=== PATIENT | male | born 1955 | race Caucasian/White ===

== ENCOUNTER 2019-10-13 22:51 | Outpatient (REF) | payer BC, SELFPAY ==
[2019-10-13 19:21] LABS: Anion Gap 11.9 mmol/L (3-11); BUN 17 mg/dL (7-18); CO2 25.1 mmol/L (21.0-32.0); CREATININE 0.89 mg/dL (0.70-1.30); Calcium 9.2 mg/dL (8.5-10.1); Calculated LDL 119 mg/dL (<100); Chloride 101 mmol/L (98-107); Cholesterol 189 mg/dL (<200); Glucose 88 mg/dL (74-106); HDL Cholesterol 48 mg/dL (40-60); Hemoglobin A1C 5.3 % (3.8-5.6); Potassium 4.4 mmol/L (3.5-5.1); Sodium 138 mmol/L (136-145); Triglyceride 113 mg/dL (<150)
== END 2019-10-13 23:11 ==
LOC: NCHCN 22:51
PROVIDERS: PCP Internal Medicine; Visit Provider Nurse Practitioner Family
DX: I10 Essential (primary) hypertension (principal); M25.552 Pain in left hip; Z00.00 Encounter for general adult medical examination without abnormal findings
CPT/HCPCS: 80048; 80061; 83036

== ENCOUNTER 2019-10-19 01:57 | Outpatient (CLI) | payer BC, SELFPAY ==
--- NOTE | 2019-10-19 | DI.RAD_ITS ---
EXAM: XR HIP RT AP LAT ONLY CLINICAL HISTORY: HIP JOINT PAIN LT, M25.552 TECHNIQUE: 2D digital imaging was performed. COMPARISON: CR RIGHT ANKLE COMPLETE from 03/25/2015 FINDINGS: There is obliteration of the hip joint space. There is prominent acetabular spurring and spurring at the margin of the femoral head. There are subchondral cysts on both sides of the joint. There is m ild flattening of the femoral head. IMPRESSION: Severe degenerative changes of the right hip.
== END 2019-10-19 02:17 ==
PROVIDERS: PCP Nurse Practitioner Family; Visit Provider Nurse Practitioner Family
DX: M25.551 Pain in right hip (principal); M16.11 Unilateral primary osteoarthritis, right hip
CPT/HCPCS: 73502

== ENCOUNTER 2019-11-08 12:07 | Outpatient (REF) | payer BC, SELFPAY ==
[2019-11-08 20:03] LABS: Anion Gap 11.6 mmol/L (3-11); BUN 20 mg/dL (7-18); CO2 24.4 mmol/L (21.0-32.0); CREATININE 0.97 mg/dL (0.70-1.30); Calcium 8.8 mg/dL (8.5-10.1); Chloride 101 mmol/L (98-107); Glucose 94 mg/dL (74-106); Potassium 4.3 mmol/L (3.5-5.1); Sodium 137 mmol/L (136-145); TSH (W/Ref FT4) 6.29 uIU/mL (0.36-3.74)
== END 2019-11-08 12:27 ==
LOC: NCHCN 12:07
PROVIDERS: PCP Nurse Practitioner Family; Visit Provider Physician Assistant Medical
DX: R07.89 Other chest pain (principal); I10 Essential (primary) hypertension; R00.1 Bradycardia, unspecified
CPT/HCPCS: 80048; 83735; 84439; 84443

== ENCOUNTER 2019-11-09 08:47 | Outpatient (CLI) | payer BC, SELFPAY | END 2019-11-09 09:07 | PROVIDERS: PCP Nurse Practitioner Family; Visit Provider Physician Assistant Medical | DX: R07.89 Other chest pain (principal); R00.1 Bradycardia, unspecified | CPT/HCPCS: 93225 ==

== ENCOUNTER 2019-11-10 12:14 | Outpatient (CLI) | payer BC, SELFPAY ==
--- NOTE | 2019-11-10 15:14 | W.HOLTRPT ---
Date of service: 11/10/19 Time of Service: 15:14 Holter Monitor Report Referring Provider:: Liane Jasmine Indications:: Chest pressure, bradycardia Holter Monitor Note: This is a 24-hour Holter monitor Rhythm throughout was sinus with an average heart rate of 64 bpm. Minimum heart rate was 45 and maximum 108 There were very rare atrial and ventricular ectopic beats There was no ventricular tachycardia or atrial fibrillation There were no pauses or AV block No patient symptoms were reported
== END 2019-11-10 12:34 ==
PROVIDERS: PCP Nurse Practitioner Family; Visit Provider Nurse Practitioner Family
DX: R07.89 Other chest pain (principal); R00.1 Bradycardia, unspecified
CPT/HCPCS: 93226

== ENCOUNTER 2019-11-15 07:29 | Outpatient (CLI) | payer BC, SELFPAY ==
--- NOTE | 2019-11-15 08:00 | ETT_ITS ---
APPROVED REPORT Exam: Exercise Treadmill Patient Location: Out-Patient Room/Bed: Stress Nurse: Alyssa Mendez RN BMI: 27.31 Baseline Rhythm: Sinus Bradycardia Indications: Chest pressure. Medical History Medical History: HTN, Hyperlipidemia Cardiac Medications: Lisinopril Allergies: No known drug allergies Cardiac Risk Factors: HTN, Hyperlipidemia Pretest Chest Pain Characteristics: No chest pain Exercise History: Physically active Physical Disabilities: Legs Lung Sounds: Clear to auscultation Heart Sounds: Regular Stress Test Details Rest Stress HR Resting HR Supine: 49 bpm Resting HR Standin bpm Max HR Achieved: 132 bpm Recovery HR: 69 bpm HR response to stress: Normal HR response to stress BP Resting BP Supine: 182/98 mmHg Resting BP Standin/92 mmHg Max BP: 206/88 mmHg Recovery BP: 180/90 mmHg BP response to stress: Normal blood pressure response to stress. Comment: Hypertensive at baseline, pre-exercise. ECG Resting ECG: Sinus Bradycardia Stress ECG: Sinus Tachycardia ST Change: Horizontal ST depression Lead(s): lateral leads Stage: [address] Deviation: 1.5 mm Arrhythmia: VPC's Recovery ECG: Sinus Rhythm Recovery ST Change: No significant ST segment changes Recovery Arrhythmia: None Clinical Reason for Termination: Fatigue Stress Symptoms: Leg Fatigue Exercise duration: 9 min01 sec Highest Stage Reached: Stage 3: 3.4 mph at 14% grade. Exercise capacity: 10.16 METs Functional Capacity: Above average capacity Stress ECG Conclusion 1. Patient exercised for 9 minutes (10 METS). Patient had no symptoms suggestive of ischemia. 2. There were 1.[address] depressions in the lateral leads. These resolved 1 minute into re covery 3. The Sherman Score ( 0) estimates an annual cardiovascular mortality of 1% and a five year survival of 92%. Using the Sherman Score there is an intermediate probability of angiographic coronary disease. Stress Test Summary STAGE Time (mins) Speed (mph) Grade (%) HR BP SYMPTOMS METS Supine 49 182/98 Standing 55 178/92 1 3 1.7 10 91 190/90 4.6 2 6 2.5 12 111 7 3 9 3.4 14 132 10.2 1 min recovery 98 206/88 3 min recovery 76 194/88 6 min recovery 69 180/90
== END 2019-11-15 07:49 ==
PROVIDERS: PCP Nurse Practitioner Family; Visit Provider Physician Assistant Medical
DX: R07.89 Other chest pain (principal); I10 Essential (primary) hypertension; E78.5 Hyperlipidemia, unspecified
CPT/HCPCS: 93017

== ENCOUNTER 2019-11-18 11:35 | Outpatient (CLI) | payer BC, SELFPAY ==
--- NOTE | 2019-11-18 10:30 | DI.RAD_ITS ---
EXAM: XR PELVIS AP CLINICAL HISTORY: R hip pain TECHNIQUE: COMPARISON: No exams were available for comparison FINDINGS: Single AP view of pelvis was obtained. There is complete loss of the cartilaginous joint space of th e right hip superiorly. Right femoral head appears mildly laterally subluxed. There are very promin ent hypertrophic degenerative marginal osteophytes of the acetabulum and femoral head. There is subc hondral cyst formation and sclerosis of the acetabulum and femoral head. IMPRESSION: Severe DJD right hip, mild degenerative changes of left hip are noted as well.
== END 2019-11-18 11:55 ==
PROVIDERS: PCP Nurse Practitioner Family; Referring Provider Nurse Practitioner Family; Visit Provider Physician Assistant
DX: M16.0 Bilateral primary osteoarthritis of hip (principal)
CPT/HCPCS: 72170

== ENCOUNTER 2019-12-16 01:42 | Outpatient (CLI) | payer BC, SELFPAY ==
[2019-12-18 17:42] LABS: COVID-19 RT-PCR Result NEGATIVE (Negative)
== END 2019-12-16 02:02 ==
PROVIDERS: PCP Nurse Practitioner Family; Visit Provider Student in an Organized Health Care Education/Training Program
DX: M16.11 Unilateral primary osteoarthritis, right hip (principal)
CPT/HCPCS: U0003

== ENCOUNTER 2019-12-16 03:04 | Outpatient (CLI) | payer BC, SELFPAY ==
[2019-12-16 11:00] LABS: HCT 41.8 % (40.0-50.0); HGB 14.4 g/dL (13.5-17.5); MCH 32.6 pg (27.0-33.0); MCHC 34.4 % (32.0-36.0); MCV 94.6 fL (80-95); Platelet Count 241 10^3/uL (130-400); RBC 4.42 10^6/uL (4.36-5.78); RDW 11.4 % (11.8-14.1); RDW-SD 39.2 fL; WBC 6.53 10^3/uL (4.4-10.8)
[2019-12-16 11:41] LABS: Anion Gap 7.5 mmol/L (3-11); BUN 21 mg/dL (7-18); CO2 26.5 mmol/L (21.0-32.0); Calcium 8.7 mg/dL (8.5-10.1); Chloride 104 mmol/L (98-107); Glucose 96 mg/dL (74-106); Potassium 4.3 mmol/L (3.5-5.1); Sodium 138 mmol/L (136-145)
== END 2019-12-16 03:24 ==
PROVIDERS: PCP Nurse Practitioner Family; Visit Provider Student in an Organized Health Care Education/Training Program
DX: M16.11 Unilateral primary osteoarthritis, right hip (principal)
CPT/HCPCS: 36415; 80048; 85027; 86850; 86900; 86901

== ENCOUNTER 2019-12-20 07:51 | Observation (INO) | payer BC, SELFPAY ==
[2019-12-20] VITALS (7 sets, daily range): BP systolic 99–157; BP diastolic 55–84; PULSE 46–57; RESP 14–19; TEMP 35.8–36.9; O2SAT 96–100
[2019-12-20] MEDS: Celecoxib 200 MG CAP 400 MG PO (08:07)
[2019-12-20] MEDS: Acetaminophen 500 MG TAB 1000 MG PO (08:07)
[2019-12-20] MEDS: Lactated Ringers 1,000 ML 80 ML IV (08:35)
--- NOTE | 2019-12-20 12:00 | DI.RAD_ITS ---
EXAM: XR HIP RT IN OR CLINICAL HISTORY: TOTAL RIGHT HIP REPLACEMENT. TECHNIQUE: Fluoroscopy was provided for the referring physician for guidance with performing injecti on procedure. COMPARISON: No exams were available for comparison FINDINGS: Please see procedure note for details. FLUORO TIME: 4.31 seconds RADIATION DOSE DELIVERED:
[2019-12-20] MEDS: ceFAZolin 2 GM/50 ML BAG IVPB (13:44)
[2019-12-20] MEDS: Bupivacaine 0.25% Pres-Free 30 ML VIAL (14:14)
[2019-12-20] MEDS: Ketorolac 30 MG/ML VIAL (14:16)
--- NOTE | 2019-12-20 16:21 | IN_ITS ---
Date of service: 12/20/19 PT Notes Visit Reasons: R HIP TOTAL Physical Therapy Inpatient Initial Evaluation Date: 12/20/2019 Referring Doctor: Palomo Wan MD PT Orders: PT CONSULT: S/P Ortho surgery Precautions: Fall. Standard. WBAT on R LE. Patient Profile/Admitting Diagnosis: Steffanie is a 64-year-old male with primary unilateral osteoarthritis of R hip status post R total hip arthroplasty. PMHX: Medical History (Updated 11/28/19 @ 13:43 by Hamilton Ware MD) HTN (hypertension) (Chronic) Social History/Home Situation: Lives with in a private home with three steps leading onto a landing and has another step onto the entrance door. Equipment Owned/DME: FWW, SPC Subjective: Steffanie reports that his foot has a magnet trying to move it to the side early in ambulation. The stiffness and heaviness disappeared by the time he got done with ambulation and stair activity. Denies dizziness, chest pain, and headache throughout. Objective: General Observation: Mepilex Ag over surgical incision, IV in the L UE. Mental Status: Alert and oriented x 4 Pain: 0/10 ROM: Right Upper Extremity: Shoulder Flexion WFL. Shoulder abduction WFL. Elbow flexion WFL. Wrist flexion WFL. Opening and closing of hand WFL. Left Upper Extremity: Shoulder Flexion WFL. Shoulder abduction WFL. Elbow flexion WFL. Wrist flexion WFL. Opening and closing of hand WFL. Right Lower Extremity: Hip flexion WFL. Hip abduction WFL. Knee flexion WFL. Ankle dorsiflexion WFL. Ankle plantarflexion WFL. Left Lower Extremity: Hip flexion WFL. Hip abduction WFL. Knee flexion WFL. Ankle dorsiflexion WFL. Ankle plantarflexion WFL. Strength: Right Upper Extremity: Shoulder flexors 5/5. Shoulder abductors 5/5. Elbow flexors 5/5. Elbow extensors 5/5. Clinical Pharmacy Coordinator strong. Left Upper Extremity: Shoulder flexors 5/5. Shoulder abductors 5/5. Elbow flexors 5/5. Elbow extensors 5/5. Clinical Pharmacy Coordinator strong. Right Lower Extremity: Hip flexors 4/5. Hip abductors 4/5. Knee flexors 5/5. Knee extensors 4/5. Ankle dorsiflexors 5/5. Ankle plantarflexors 5/5. Left Lower Extremity:Hip flexors 5/5. Hip abductors 5/5. Knee flexors 5/5. Knee extensors 5/5. Ankle dorsiflexors 5/5. Ankle plantarflexors 5/5. Sensation: Intact as to pain and pressure on bilateral lower extremities. Bed Mobility/Transfers: Supine to sit SBA Sit to supine SBA Sit to stand SBA Stand to sit SBA Bed to chair SBA Gait: 150 feet x 2 with FWW with SBA with step-to gait pattern. Tolerated up and down six 4-inch steps and four 6-inch steps while holding onto a rail with one hand and using a SPC with the other with step-to pattern with SBA. No pain complaint. No SOB. THERA EX: Tolerated standing level exercises consisting of bilateral heel raises x 10, marching in place x 10, and partial knee bends x 10 with good response. Balance: Static Sitting: Normal Dynamic Sitting: Normal Static Standing: Fair Dynamic Standing: Fair Special Tests: Mobility Limitations Standardized Measure [facility] 6 clicks Basic Mobility Inpatient Short Form: Raw Score: 23 CMS Score: 11% deficit Informed Consent/Education: Patient instructed in purpose of PT consult and plan of care. Assessment: Steffanie demonstrates functional mobility decline requiring the need for a front-wheeled walker, unsteadiness of gait, difficulty with walking without an AD, and increased risk for falls. Steffanie is a 64-year-old male with primary unilateral osteoarthritis of R hip status post R total hip arthroplasty. Patient presents with clinical signs and symptoms consistent with current/admitting diagnoses that have resulted to mobility limitations, gait instability, generalized weakness, and impairment of motor control as demonstrated by the following impairment level findings: 1. Decreased strength to R hip major muscle groups 2. Impaired sitting/standing balance 3. Impaired activity tolerance Impairments are contributing to the following functional limitations: 1. Dependent bed mobility skills 2. Increased dependence with transfers 3. Inability to safely ambulate without assistive device and physical assistance 4. Increase completion time for mobility ADL performance 5. Increased fall risk 6. Inability to negotiate steps alone safely Patient is assessed as a 70588 moderate complexity based on the following: History: 64-year-old male with impairment level findings, functional limitations, and past medical history as indicated above Examination: Demonstrable impairment in strength, balance, and mobility level with underlying impairments and functional limitations as documented above Presentation:Evolving Decision Makin complexity Goals: N/A. PT evaluation only. Plan of Care/Treatment Plan: N/A. PT evaluation only. DISCHARGE RECOMMENDATIONS: Home when medically cleared by orthopedic surgeon. OP PT to facilitate return to independent level. TREATMENT CODE/TIME: 98848 x 25 minutes, 15932 x 27 minutes beginning at 16:21 PM. Thank you for the opportunity to participate in the care of this patient. Guillermina Woodward PT, DPT, CLT [facility] [place], [place]
--- NOTE | 2019-12-20 17:36 | DSE_ITS ---
Date of service: 12/20/19 Time of Service: 17:36 DS: Diagnosis Discharge Diagnosis (1) Primary osteoarthritis of right hip: Status: Acute Discharge Plan Disposition Patient Disposition: HOME Condition: Good Discharge Details Reason For Visit: R HIP TOTAL Admit Date/Time: 12/20/19 07:51 Admit Provider: Palomo Wan Attending Provider: Palomo Wan Primary Care Provider: Nidia Capone Hospital Course Hospital Course: Patient was admitted to the medical/surgical floor following the procedure. The surgery was tolerated well without any notable medical, surgical, or anesthetic complications. Mobilization began postoperatively. He was voiding spontaneously. Vitals were stable. Physical therapy worked with the patient and was cleared for discharge home. No acute medical issues. Pain was controlled on oral regimen. Home Meds and New Rx's Prescriptions: New aspirin 81 mg tablet,delayed release (DR/EC) 81 mg PO BID Qty: 60 RF: 0 pantoprazole [Protonix] 40 mg tablet,delayed release (DR/EC) 40 mg PO DAILY Qty: 30 RF: 0 ibuprofen 600 mg tablet 600 mg PO TID Qty: 90 RF: 0 oxycodone 5 mg tablet 5 mg PO Q4H PRNQty: 18 RF: 0 acetaminophen [Tylenol Extra Strength] 500 mg tablet 500 mg PO Q6H PRNQty: 90 RF: 0 Continued lisinopril 5 mg tablet 5 mg PO DAILY RF: 0 atorvastatin 40 mg tablet 40 mg PO HS RF: 0 metoprolol succinate 25 mg tablet extended release 24 hr 25 mg PO HS RF: 0 famotidine 20 mg Tablet 20 mg PO DAILY RF: 0 Discontinued aspirin [Aspir-81] 81 mg tablet,delayed release (DR/EC) 81 mg PO DAILY Qty: 90 RF: 3 Discharge Instructions Additional Instructions: Total Hip Discharge Instructions Activity: The most important activity is to walk. You should try to take short walks a few times a day. You have no restrictions on movement or positioning, but do not try to force what you do. You will find some stiffness and weakness with hip flexion (lifting your knee). Do not try to strengthen this too early, continue to practice walking and stairs and this will come. - Outpatient physical therapy can be helpful to help return you to a normal gait and improve your flexibility and strength. This can start around 2 weeks. For some patients, it?s not necessary. Usually this is determined at the time of discharge or at the first post-operative visit. - You should wear the EPIFANIO hose on both legs for 2 weeks. Dressing: Keep the surgical dressing in place for at least one week. After the first week it may be removed and replace with light gauze and tape or nothing. It may get wet after 3 days but avoid soaking the dressing. If it gets wet, just lightly pat dry. It is important to always keep some gauze between skin folds, especially when you are sitting. Spend some time with the wound exposed when you are lying flat as the incision does wrinkle onto itself. Medications: - You should take Tylenol and an anti-inflammatory Ibuprofen as your primary pain control medications - You have been prescribed a stronger pain medication Oxycodone for breakthrough pain, take as needed as prescribed. - You have also been prescribed a stomach acid reduction agent Pantoprozole to help reduce stomach acid and reflux. - You will be taking Aspirin 81mg twice a day for DVT prevention unless instructed otherwise. - If you have constipation you should take Colace or Miralax (both over-the- counter). It takes most people 3-4 days to have a bowel movement. Follow-up: 2 weeks Referrals: Palomo Wan MD [ [facility] STAFF PHYSICIAN] - Activity:: Activity as Tolerated Equipment/Supplies:: Walker Diet:: As Tolerated Discharge Orders Discharge Orders: Discharge Order (Routine); Ordered 12/20/19 Ordered By: Palomo Wan DS: Summary Status at Discharge Functional status at discharge: uses cane/walker Overall status at discharge: patient is progressing back to baseline Mental Status: mental status grossly normal Speech and Movement: speech and movement normal Mood: congruent mood Affect: normal affect Exam Psych Mental Status: mental status grossly normal Speech and Movement: speech and movement normal Mood: congruent mood Affect: normal affect DS: Data Vitals/I&O Vitals and I&O: Vital Signs Temperature 35.8 C L 12/20/19 17:15 Pulse 47 L 12/20/19 17:15 Pulse Rhythm Regular 12/20/19 17:15 Respiratory Rate 18 12/20/19 17:15 Respiratory Effort 12/20/19 17:15 Respiratory Depth Normal 12/20/19 17:15 Respiratory Pattern Normal 12/20/19 17:15 Blood Pressure 120/71 12/20/19 17:15 Pulse Oximetry 96 12/20/19 17:15 Respiratory End-tidal CO2 30 12/20/19 15:58 Oxygen Delivery Method Room Air 12/20/19 17:15 Oxygen Flow Rate 0 12/20/19 17:15 Pain Level 0 12/20/19 17:15 Intake & Output 12/19/19 12/20/19 12/20/19 23:59 11:59 23:59 Intake Total 1070 / 1070 Balance 1070 / 1070 Weight 79.5 kg 79.5 kg Intake: IV 1070 / 1070 Other: Emesis Description None [facility] Medical History GERD (gastroesophageal reflux disease) (Chronic) HTN (hypertension) (Chronic) Social History Smoking/Tobacco Use Status: Former Tobacco Use Drug use: Never
--- NOTE | 2019-12-20 17:38 | W.PM.OP ---
Date of service: 12/20/19 Time of Service: 15:12 Operative Note Operative Note DATE OF PROCEDURE: 12/20/19 PRE-OP DIAGNOSIS: Right Hip Osteoarthritis POST-OP DIAGNOSIS: same PROCEDURE: Right Anterior Total Hip Arthroplasty SURGEON: Palomo Wan AUTOMOBILE RENTAL REPRESENTATIVE: Kimberli Addison ANESTHESIA: spinal ESTIMATED BLOOD LOSS: 300 PATHOLOGY: none sent TOURNIQUET TIME: 0 COMPLICATIONS: Other (Fracture to tip of the greater trochanter, no involving abductor attachment) Patient was transported to: PACU Patient's condition: stable Implants: 1. Depuy [place] Acetabular Component, 54mm 2. Depuy Acetabular Liner, 10m19se 3. Depuy Corail High Offset Femoral Stem, Size 14 4. Depuy Altrx Ceramic Femoral Head, Size 36+1.5mm Indications: I have seen Steffanie in clinic for symptoms of hip arthritis, confirmed with radiographic findings. He has exhausted nonoperative methods and was having significant limitations in daily function and desired better function and less pain. I discussed the technical details of a hip replacement. I explained the risks of the procedure to include, but not limited to, bleeding, infection, pain, stiffness, fracture, damage to nerves and vessels, damage to muscles and tendons, loosening, instability, leg length inequality, need for repeat procedure, blood clot and cardiopulmonary demise. Despite these risks, Steffanie elected to proceed. Findings: There was significant signs of arthritis throughout the hip. Procedure Description: Steffanie was greeted in the preoperative holding area where the correct side was identified and marked. The consent was reviewed with the patient and signed. The history and physical was updated. All questions were answered. He was taken back to the operating room. A spinal anesthestic was then administered. The patient was placed into the supine position on the operating room table. The patient was then positioned onto the ARCH table. Both feet were wrapped with Webrill cotton wrap along with Coban. The feet were placed in specialized boots for the ARCH table, well seated within the boot and secured. SCDs were applied. The patient was then slid down onto a peroneal post and the nonoperative leg was secured in a leg duron attached to the table. The operative side was placed into the ARCH table attachment and bed height and positioning was secured. A preoperative AP pelvis was obtained to serve as a reference for determining leg lengths. Prophylactic antibiotics in the form of cefazolin were administered. 1g of Tranxemic Acid was given intravenously within 30 minutes of incision. The right leg was then prepped with Chloraprep and draped in a standard fashion. A second prep with Chloraprep was performed prior to placement of a shower-curtain type drape with Iodine impregnated skin protection. A timeout to confirm correct identity, side and site, procedure, allergies, anesthesia, and medical concerns was performed. An obliquely oriented incision was made starting lateral to the ASIS and running distal over the Tensor Fascia Frieda (TFL) muscle belly toward the fibular head, approximately 10cm. The skin and soft tissue was dissected sharply, through Blaine?s fascia, and to the fascia of the TFL. With the fascia and superior border of the IT band identified, the fascia was incised with a new knife just above any perforators from the IT band. The TFL muscle belly was bluntly dissected away from the fascia and moved laterally. The fat between TFL and rectus was identified to ensure the dissection was not within the TFL. Blunt dissection created space between abductors and the capsule and retractor was placed over the lateral femoral neck. The fibers of the rectus femoris tendon were identified and these were freed from the anterior capsule. A second cobra retractor was placed around the medial femoral neck. The TFL was further retracted laterally to show the deep fascia. Careful dissection through this layer identified three main crossing vessels of the lateral femoral circumflex. These were cauterized in multiple locations and then cut without any noticeable bleeding. The TFL was further released bluntly from the deep fascia to expose anterior hip capsule and fat the Jona orthopaedic retractor was then placed beneath the TFL and against sartorius and medial soft tissues to protect and retract the soft tissues. A T-capsulotomy was then performed starting at the superior lateral acetabulum and moving distally to the intertrochanteric ridge. These capsular flaps were tagged with a No. 1 Ethibond and elevated from within. The capsular flaps were released to the shoulder of the lateral neck and to the lesser trochanter to give excellent visualization of the proximal femur. A neck osteotomy was performed using an oscillating saw based on preoperative templates. This cut started in the shoulder and of the lateral neck and exited medially. The saw was at all times directed medially to avoid injury to the greater trochanter. 6cm of traction was applied to the leg and the osteotomy opened. The femoral head was removed with a corkscrew, making sure to protect the TFL on its exit. This was measured on the back table to determing the starting reamer size. Portions of the rectus obscuring visualization were minimally elevated off the superior acetabulum. An anterior retractor was placed over the anterior wall between capsule and labrum and attached to the Gripper retraction system. A posterior retractor was placed similarly. This provided excellent visualization. The contents of the cotyloid fossa were removed with electrocautery and the labrum was removed with a knife. There was a notable floor osteophyte. There was significant chondromalacia of the superior acetabulum. Acetabular reaming began with a 52mm reamer. This first reaming was directed anterior to posterior and medial to get down to the true floor. This was inspected and reamed until the true floor was reached. The anterior retractor was then released and entry and exit was provided by traction on the capsular flaps. I then reamed sequentially up to a 56mm reamer where good fit was obtained. The larger reamers were oriented based on anatomical reference of the anterior and lateral tirado to ensure proper abduction and anteversion. Positioning and size was confirmed with the fluoroscopy. A 56mm Depuy [place] acetabular component was selected. The acetabulum was reamed around the periphery with the selected acetabular size to prevent a rim fit. The deep tissues were irrigated. The acetabular component was then impacted in a position of about 40-45 degrees of abduction and 15-20 degrees of anteversion, using the patient?s anatomy as the ultimate landmark. Fluoroscopy was used to confirm this. There was excellent mission support specialist of the acetabular component and the inserting handle was removed. The acetabular liner, Depuy [id number] polyethylene liner, was inserted and lined up with the tines of the acetabular component. There was no soft tissue interposition. The liner was then impacted into position and confirmed to be well-seated. A portion of the vandana-articular cocktail was then injected around the acetabulum into the capsule and periosteum. This cocktail consisted of 50cc of 0.25% Bupivicaine and 20cc of Exparel, expanded to a total of 120cc. Traction was released from the femur. The leg was rotated to 120 degrees. Any remaining medial capsule was released until the lesser trochanter was easily palpable. A Bello retractor was placed medially. The lateral capsule was further released into the shoulder to allow access to the greater trochanter. A Bello retractor was placed over the greater trochanter which allowed the trochanter to flip in front of the capsule for excellent exposure. The leg was brought down into maximal extension and 20 degrees of adduction while ensuring there was no impingement on the acetabulum. Any remnant capsule within the trochanter was released. Piriformis and obturator externis were identified and protected. There was excellent access to the proximal femur. The lateral neck remnant was removed with a rongeur. A blunt canal probe was used to identify the canal and trajectory for later broaching. A box osteotome initiated the broach course. A small curved rasp and a curved curette were used to work laterally. Broaching then began with a size 8 Corail broach. This was inserted manually around the trochanter and into the canal before mallet blows. The broach was seated to a few millimeters below the cut level based on the neck cut and the preoperative template. Sequential broaching was continued with the Eventstag[employer].amse pneumatic broaching device until a tight fit was obtained with good rotational control of the femur. A trial high offset neck was inserted along with a +1.5 trial head. The leg was brought out of extension and adduction and then reduced with traction and internal rotation. The leg was stable anteriorly in a position of 30 degrees of extension and 90 degrees of external rotation. Fluoroscopy was used to ensure there was no fracture and the stem was seated well. Leg lengths were checked with an AP pelvis and pelvic reference points. Summly navigation system was used to confirm appropriate positioning and leg length and offset. Once content with the desired offset and leg lengths, the leg was brought back into extension, external rotation and adduction. In removing the final broach, there was significant distal fit. This trajectory required the straight braoch handle and on extraction of the broach the tip of the trochanter was broken. This was inspected fully and had little abductor attachment and some residual capsule. The periosteum and surrounding tissue was injected with remaining portion of the vandana-articular cocktail. The proximal femur was irrigated as well as the deep tissues. The Smart[employer]y Corail high offset stem, size 14, was then manually inserted into the proximal femur making sure to control rotation. It was then malleted into position with light blows, giving breaks to allow bone expansion and decrease risk of fracture. The selected Depuy Altrx Ceramic Head, size 36+1.5mm, was then placed onto the clean and dry trunnion and secured with impaction onto the tapered fit. The leg was brought back out of extension and adduction and reduced with traction and internal rotation. Stability was confirmed with no shuck at 90 degrees of external rotation and 30 degrees of extension. No impingement through range of motion arc. Final x-ray images were obtained with fluoroscopy to confirm adequate positioning. The fracture was inspected by palpation and with the x-ray and was found to be stable and not involving the trochanter with abductor attachments. The deep tissues were thoroughly irrigated with Irrisept chlorhexadine solution. The second dose of TXA 1g was administered intravenously.The capsule was then reapproximated with the previously placed Ethibond sutures. The TFL fascia was finally closed with a No. 2 Stratafix, barbed suture. Deep tissues were then reapproximated with 0 Vicryl and a running 2-0 Vicryl. The skin was closed with a running 4-0 Monocryl in a subcuticular fashion. This was reinforced with skin glue. A Mepilex silver dressing was applied. At the end of the case, all counts were correct. Steffanie was transferred to the hospital bed without difficulty and suffering a fracture to the tip of the greater trochnater which should not effect overall function. Steffanie has a good prognosis. Physical therapy will start today and without restrictions, weight-bearing as tolerated. Aspirin 81mg BID will be used for DVT prophylaxis.
== END 2019-12-20 19:12 | disposition home or self-care (01) ==
LOC: PDS 15:37 → MS 15:38
PROVIDERS: Admitting Provider Student in an Organized Health Care Education/Training Program; PCP Nurse Practitioner Family; Visit Provider Student in an Organized Health Care Education/Training Program
PROC: 0SR904A Replacement of Right Hip Joint with Ceramic on Polyethylene Synthetic Substitute, Uncemented, Open Approach (ICD-10-PCS; CPT 27130; principal; 2019-12-20 10:15)
DX: M16.11 Unilateral primary osteoarthritis, right hip (principal); M25.551 Pain in right hip; Z96.641 Presence of right artificial hip joint; I10 Essential (primary) hypertension; E03.9 Hypothyroidism, unspecified
CPT/HCPCS: 27130; 20985; 97162; 97530; NC; 73501; J0690; J1885; J2001; J2250; J3010

== ENCOUNTER 2020-01-02 11:18 | Outpatient (CLI) | payer BC, SELFPAY ==
--- NOTE | 2020-01-02 10:45 | DI.RAD_ITS ---
EXAM: XR HIP RT COMPLETE AP PELVIS INDICATION: 1ST POST OP. COMPARISON: XR HIP RT IN OR from 12/20/2019 TECHNIQUE: 2D digital imaging was performed. FINDINGS: There are stable postsurgical changes of a right total hip arthroplasty. The bones are intact and no rmally mineralized. The soft tissues are unremarkable. Stable mild degenerative changes are seen in the left hip. IMPRESSION: Stable right THR. DATA REPOSITORY: RADIATION DOSE DELIVERED:
== END 2020-01-02 11:38 ==
PROVIDERS: PCP Nurse Practitioner Family; Referring Provider Nurse Practitioner Family; Visit Provider Physician Assistant
DX: Z96.641 Presence of right artificial hip joint (principal)
CPT/HCPCS: 73502

== ENCOUNTER 2020-01-04 09:14 | Outpatient (REF) | payer BC, SELFPAY ==
[2020-01-04 21:15] LABS: FREE T4 0.98 ng/dL (0.76-1.46); TSH 7.59 uIU/mL (0.36-3.74)
== END 2020-01-04 09:34 ==
LOC: NCHCN 09:14
PROVIDERS: PCP Nurse Practitioner Family; Visit Provider Physician Assistant Medical
DX: R94.6 Abnormal results of thyroid function studies (principal)
CPT/HCPCS: 84439; 84443

== ENCOUNTER 2020-02-09 09:00 | Outpatient (REF) | payer BC, SELFPAY ==
[2020-02-09 09:38] LABS: Calculated LDL 63 mg/dL (<100); Cholesterol 125 mg/dL (<200); HDL Cholesterol 52 mg/dL (40-60); Triglyceride 53 mg/dL (<150)
== END 2020-02-09 09:20 ==
LOC: LBN 09:00
PROVIDERS: PCP Nurse Practitioner Family; Visit Provider Internal Medicine Cardiovascular Disease
DX: R94.39 Abnormal result of other cardiovascular function study (principal)
CPT/HCPCS: 80061

== ENCOUNTER 2020-12-20 09:38 | Outpatient (CLI) | payer BC, SELFPAY ==
--- NOTE | 2020-12-20 08:45 | DI.RAD_ITS ---
Exam(s) XR HIP RT AP LAT ONLY EXAM: XR HIP RT AP LAT ONLY CLINICAL HISTORY: right GIOVANNI. TECHNIQUE: 2D digital imaging was performed. COMPARISON: CR XR HIP RT COMPLETE AP PELVIS from 01/02/2020 FINDINGS: There is continued stable position alignment of the components of the right hip prosthesis. No fract ure or loosening evident. No radiographic evidence of osteomyelitis. IMPRESSION: DATA REPOSITORY: RADIATION DOSE DELIVERED:
== END 2020-12-20 09:39 | disposition home or self-care (01) ==
LOC: DIORS 09:38
PROVIDERS: PCP Nurse Practitioner Family; Referring Provider Nurse Practitioner Family; Visit Provider Physician Assistant
DX: Z96.641 Presence of right artificial hip joint (principal); Z98.890 Other specified postprocedural states
CPT/HCPCS: 73502

== ENCOUNTER 2021-11-28 17:07 | Outpatient (REF) | payer BC, SELFPAY ==
[2021-11-28 19:37] LABS: Anion Gap 7.7 mmol/L (3-11); BUN 20 mg/dL (7-18); CO2 27.3 mmol/L (21.0-32.0); Calcium 8.5 mg/dL (8.5-10.1); Chloride 104 mmol/L (98-107); FREE T4 0.76 ng/dL (0.76-1.46); Glucose 102 mg/dL (74-106); Potassium 4.2 mmol/L (3.5-5.1); Sodium 139 mmol/L (136-145); TSH 8.38 uIU/mL (0.36-3.74)
== END 2021-11-28 17:08 | disposition home or self-care (01) ==
LOC: NCHCN 17:07
PROVIDERS: PCP Nurse Practitioner Family; Visit Provider Nurse Practitioner Family
DX: I10 Essential (primary) hypertension (principal); E03.9 Hypothyroidism, unspecified
CPT/HCPCS: 80048; 84439; 84443

== ENCOUNTER 2022-01-06 13:30 | Outpatient (REF) | payer BC, SELFPAY ==
[2022-01-06 16:34] LABS: TSH (W/Ref FT4) 5.69 uIU/mL (0.36-3.74)
[2022-01-06 16:57] LABS: FREE T4 0.93 ng/dL (0.76-1.46)
== END 2022-01-06 13:31 | disposition home or self-care (01) ==
LOC: NCHCN 13:30
PROVIDERS: PCP Nurse Practitioner Family; Visit Provider Nurse Practitioner Family
DX: E03.8 Other specified hypothyroidism (principal)
CPT/HCPCS: 84439; 84443

== ENCOUNTER 2022-02-25 08:52 | Outpatient (CLI) | payer BC, SELFPAY ==
--- NOTE | 2022-02-25 08:45 | RT.EKG_ITS ---
APPROVED REPORT Exam: Resting ECG Reason for Exam: CAD Patient Location: O HR:51 bpm ECG Measurements Heart Rate 51 AXIS OH 197 P 22 QRSd 99 QRS -23 QT 441 T 24 QTc 407 Conclusion Sinus rhythm...normal P axis, V-rate 50- 99 Left ventricular hypertrophy...multiple voltage criteria
== END 2022-02-25 08:53 | disposition home or self-care (01) ==
LOC: DI.CARD 08:52
PROVIDERS: PCP Nurse Practitioner Family; Visit Provider Internal Medicine Cardiovascular Disease
DX: I10 Essential (primary) hypertension (principal); I25.10 Atherosclerotic heart disease of native coronary artery without angina pectoris; R00.1 Bradycardia, unspecified
CPT/HCPCS: 93010

== ENCOUNTER 2022-05-29 17:09 | Outpatient (REF) | payer BC, SELFPAY ==
[2022-05-29 16:26] LABS: TSH 5.83 uIU/mL (0.36-3.74)
== END 2022-05-29 17:10 | disposition home or self-care (01) ==
LOC: NCHCN 17:09
PROVIDERS: PCP Nurse Practitioner Family; Visit Provider Nurse Practitioner Family
DX: E03.9 Hypothyroidism, unspecified (principal)
CPT/HCPCS: 80061; 83036; 84439; 84443; 84550

== ENCOUNTER 2022-11-27 13:27 | Outpatient (REF) | payer BC, SELFPAY ==
[2022-11-27 14:49] LABS: ALT 30 U/L (16-63); AST 22 U/L (15-37); Albumin 4.1 g/dL (3.4-5.0); Alkaline Phosphatase 62 U/L (46-116); BUN 25 mg/dL (7-18); Bilirubin, Total 1.4 mg/dL (0.2-1.0); Calculated LDL 74 mg/dL (<100); Chloride 106 mmol/L (98-107); Cholesterol 145 mg/dL (<200); Estimated GFR 81.98 (mL/min/1.73m2); Glucose 102 mg/dL (74-106); HDL Cholesterol 54 mg/dL (40-60); Potassium 4.5 mmol/L (3.5-5.1); Sodium 141 mmol/L (136-145); TSH 5.19 uIU/mL (0.36-3.74); Total Protein 7.8 g/dL (6.4-8.2); Triglyceride 85 mg/dL (<150)
[2022-11-27 23:14] LABS: PSA, Screening 0.4 ng/mL (<=4.5)
[2022-11-28 09:04] LABS: FREE T4 0.85 ng/dL (0.76-1.46)
[2022-11-28 10:36] LABS: Hepatitis C Ab w Rflx HCV PCR Negative (Negative)
== END 2022-11-27 13:28 | disposition home or self-care (01) ==
LOC: NCHCN 13:27
PROVIDERS: PCP Nurse Practitioner Family; Visit Provider Nurse Practitioner Family
DX: E03.9 Hypothyroidism, unspecified (principal); R03.0 Elevated blood-pressure reading, without diagnosis of hypertension; Z11.59 Encounter for screening for other viral diseases; Z12.5 Encounter for screening for malignant neoplasm of prostate; Z00.00 Encounter for general adult medical examination without abnormal findings; Z13.220 Encounter for screening for lipoid disorders
CPT/HCPCS: 80053; 80061; 84153; 86803; 84439; 84443

== ENCOUNTER 2023-03-09 22:13 | Outpatient (REF) | payer BC, SELFPAY ==
[2023-03-09 15:21] LABS: HCT 42.8 % (40.0-50.0); HGB 14.9 g/dL (13.5-17.5); MCHC 34.8 % (32.0-36.0); MCV 95 fL (80-95); MPV 9.8 fL (8.0-11.0); Platelet Count 232 10^3/uL (130-400); RBC 4.51 10^6/uL (4.36-5.78); RDW 11.7 % (11.8-14.1); RDW-SD 40.7 fL; WBC 5.77 10^3/uL (4.4-10.8)
[2023-03-09 15:31] LABS: ALT 26 U/L (16-63); AST 21 U/L (15-37); Albumin 3.9 g/dL (3.4-5.0); Alkaline Phosphatase 60 U/L (46-116); Anion Gap 9.2 mmol/L (3-11); BUN 22 mg/dL (7-18); Bilirubin, Direct 0.2 mg/dL (0.0-0.2); Bilirubin, Total 1.2 mg/dL (0.2-1.0); CO2 25.8 mmol/L (21.0-32.0); CREATININE 1.2 mg/dL (0.70-1.30); Calcium 8.9 mg/dL (8.5-10.1); Chloride 104 mmol/L (98-107); Estimated GFR 65.87 (mL/min/1.73m2); Glucose 101 mg/dL (74-106); Potassium 4.4 mmol/L (3.5-5.1); Sodium 139 mmol/L (136-145); Total Protein 7.9 g/dL (6.4-8.2)
== END 2023-03-09 22:14 | disposition home or self-care (01) ==
LOC: NCHCN 22:13
PROVIDERS: PCP Nurse Practitioner Family; Visit Provider Nurse Practitioner Family
DX: E80.6 Other disorders of bilirubin metabolism (principal)
CPT/HCPCS: 80053; 85027; 82248

== ENCOUNTER 2023-03-31 17:33 | Emergency (ER) | payer BC, SELFPAY ==
[2023-03-31 17:36] VITALS: BP 182/97; PULSE 49; RESP 16; TEMP 36.3; O2SAT 98
--- NOTE | 2023-03-31 17:45 | DI.RAD_ITS ---
Exam(s) XR CHEST 1V IN DI DEPT EXAM: XR CHEST 1V IN DI DEPT CLINICAL HISTORY: Fall hip pain TECHNIQUE: 2D digital imaging was performed of the chest. One image was obtained. An AP view was ob tained. COMPARISON: No exams were available for comparison FINDINGS: MEDIASTINUM: Normal. HEART: Normal. PULMONARY VASCULATURE: Normal. LUNGS: Clear. PLEURAL SPACE: No pleural effusion or pneumothorax. BONE:Within normal limits for the patient's age. OTHER FINDINGS:Normal. IMPRESSION: No acute pulmonary findings. DATA REPOSITORY: RADIATION DOSE DELIVERED:
--- NOTE | 2023-03-31 17:45 | DI.RAD_ITS ---
Exam(s) CT PELVIC WO XR HIP RT COMPLETE AP PELVIS EXAM: CT PELVIC WO and XR RT complete AP pelvis CLINICAL HISTORY: Right hip pain. TECHNIQUE: Imaging Protocol: Axial computed tomography images with coronal and sagittal reformatted images were created and reviewed. Three images were obtained. COMPARISON: CR XR HIP RT AP LAT ONLY from 12/20/2020 FINDINGS: CT scan of the pelvis without: Bones: The patient has a right total hip prosthesis. No lucencies are seen about the hardware to sug gest loosening. No definite acute fracture is identified. There is artifact from the patient's orth opedic hardware projecting over the right superior pubic ramus. There is a question of some disrupti on of the cortex of the lateral aspect of the superior pubic ramus. Artifact versus a nondisplaced f racture. There are degenerative changes seen in the left hip. The sacroiliac joints appear intact. There are degenerative changes seen at the SI joints bilaterally. No lytic or sclerotic lesions are identified. Soft Tissues: There is diverticulosis seen in the colon but no evidence of a diverticulitis. The pro state gland appears mildly enlarged. There is atherosclerosis present. XR hip RT complete and AP pelvis: The patient has a right total hip replacement. No lucencies are seen in or about the orthopedic hard brambila to suggest loosening. The bones appear intact. Atherosclerosis is present. There are degenera tive changes seen in the lower lumbar spine and the left hip. There also degenerative changes seen a t the sacroiliac joints, left greater than right. IMPRESSION: 1. Right total hip replacement. No evidence of hardware failure. 2. No definite acute fracture or dislocation. 3. Question of disruption of the cortex of the lateral aspect of the right superior pubic ramus. Thi s may be created by artifact from the patient's right total hip replacement. Please correlate with p hysical exam. If clinically necessary, a repeat examination or MRI may be obtained. RADIATION DOSE DELIVERED: Total DLP Total DLP DATA REPOSITORY: All CT scans at this facility are submitted to the National Radiology Data Registry (NRDR) Dose Index Registry (DIR) with the [employer] (ACR). RADIATION OPTIMIZATION: All CT scans at this facility use at least one of these dose optimization te chniques: automated exposure control; mA and/or kV adjustment per patient size (includes targeted exa ms where dose is matched to clinical indication); or iterative reconstruction.
[2023-03-31] MEDS: ACETAMINOPHEN 1,000 MG/100 ML BTL 400 MG IVPB (19:21)
[2023-03-31] MEDS: MORPHine 4 MG/ML SYR IVP (19:21)
[2023-03-31] MEDS: Normal Saline 500 ML IV (19:22)
--- NOTE | 2023-03-31 19:22 | DI.VRAD_ITS ---
PROCEDURE INFORMATION: Exam: XR Chest Exam date and time: 03/31/2023 6:56 PM Age: 67 years old Clinical indication: Patient HX: Fall, hip pain TECHNIQUE: Imaging protocol: Radiologic exam of the chest. Views: 1 view. COMPARISON: No relevant prior studies available. FINDINGS: Lungs: Unremarkable. No consolidation. Pleural spaces: Unremarkable. No pleural effusion. No pneumothorax. Heart/Mediastinum: Unremarkable. No cardiomegaly. Bones/joints: Moderate degenerative changes throughout the thoracic spine and in both shoulders. No acute fracture. IMPRESSION: No acute disease Dictated and Authenticated by: Teddy Brown MD. Ordering:KENDRA Paiz MD
[2023-03-31 19:23] LABS: Abs Immature Grans 0.05 10^3/uL (0.0-0.06); Absolute Basophil Count 0.07 10^3/uL (0.0-0.2); Absolute Eosinophil Count 0.08 10^3/uL (0.0-0.7); Absolute Monocyte Count 0.69 10^3/uL (0.1-0.8); Basophils % 0.5; Eosinophils % 0.6; HCT 43.5 % (40.0-50.0); HGB 15.4 g/dL (13.5-17.5); Immature Grans % 0.4; Lymphocytes % 11.3; MCH 32.9 pg (27.0-33.0); MCHC 35.4 % (32.0-36.0); MCV 93 fL (80-95); MPV 9.4 fL (8.0-11.0); Monocytes % 5.2; Platelet Count 246 10^3/uL (130-400); RBC 4.68 10^6/uL (4.36-5.78); RDW 11.4 % (11.8-14.1); WBC 13.33 10^3/uL (4.4-10.8)
--- NOTE | 2023-03-31 19:24 | DI.VRAD_ITS ---
PROCEDURE INFORMATION: Exam: XR Right Hip Exam date and time: 03/31/2023 6:59 PM Age: 67 years old Clinical indication: Injury or trauma; Blunt trauma (contusions or hematomas); Right; Injury date: 03/31/23; Injury details: Fall hip pain; Prior surgery; Surgery date: 6+ months; Surgery type: Hip replacement TECHNIQUE: Imaging protocol: Radiologic exam of the right hip. Views: 2 or 3 views hip with pelvis when performed. COMPARISON: CR XR HIP RT AP LAT ONLY 12/20/2020 9:17 AM FINDINGS: Bones/joints: Right hip prosthesis remains in place. No evidence of hardware failure or loosening. Osseous alignment is normal. No acute fracture. Mild degenerative changes in the lower lumbar spine. Soft tissues: Unremarkable. IMPRESSION: No acute abnormality Dictated and Authenticated by: Teddy Brown MD. Ordering:KENDRA Paiz MD
[2023-03-31 19:30] LABS: Absolute Lymphocyte Count 1.51 10^3/uL (1.2-3.4); Absolute Neutrophil Count 10.93 10^3/uL (1.2-6.7)
[2023-03-31 19:33] LABS: Anion Gap 10.1 mmol/L (3-11); BUN 22 mg/dL (7-18); CO2 24.9 mmol/L (21.0-32.0); CREATININE 1.1 mg/dL (0.70-1.30); Calcium 9.2 mg/dL (8.5-10.1); Chloride 103 mmol/L (98-107); Estimated GFR 73.12 (mL/min/1.73m2); Glucose 108 mg/dL (74-106); Potassium 3.9 mmol/L (3.5-5.1); Sodium 138 mmol/L (136-145)
--- NOTE | 2023-03-31 19:45 | W.ED.GENAD ---
Discharge Plan Disposition Patient Disposition: Home Discharge Details Clinical Impression: Acute pain of right hip, History of falling Primary Care Provider: Nidia Capone ED Provider: Chencho Lopez [place] Meds and New Rx's Prescriptions: Continued aspirin 81 mg tablet,delayed release (DR/EC) 81 mg PO ONCE levothyroxine 25 mcg capsule 25 mcg PO DAILY mupirocin 2 % ointment 1 applic topical TID Qty: 15 0RF atorvastatin 40 mg tablet 40 mg PO HS Qty: 90 3RF amlodipine 5 mg tablet See Rx Instructions .ROUTE .COMPLEX Qty: 90 3RF Dose Instruction: TAKE ONE TABLET BY MOUTH EVERY DAY Rx Instructions: TAKE ONE TABLET BY MOUTH EVERY DAY metoprolol succinate 25 mg tablet extended release 24 hr 25 mg PO HS Qty: 90 3RF famotidine 20 mg Tablet 20 mg PO DAILY acetaminophen [Tylenol Extra Strength] 500 mg tablet 500 mg PO Q6H PRNQty: 90 0RF Discontinued ibuprofen 600 mg tablet 600 mg PO TID Qty: 90 0RF Discharge Instructions Instructions: Leg Pain (ED) Additional Instructions: Please read all of the information that accompanies these instructions. You were seen in the emergency department for your hip pain. Your x-ray and your CT scan showed no obvious signs of any fractures. As we discussed, you may bear weight on your right lower extremity but please do so using your walker. If you have a sudden worsening in your pain please return to the emergency department. Otherwise please call the orthopedic team for a follow-up appointment later this week later this week. You are receiving several tablets of a stronger pain medicine. Please do not drink alcohol or drive any motor vehicles or operate any machinery after taking this stronger medicine. For your pain please take medications as follows: 1. Take acetaminophen (Tylenol), 1,000 mg (two 500 mg tabs) every 6 hours HPI General Date/Time Provider Initiated Documentation: 03/31/23 17:49. HPI Narrative: [facility] This is an uncomfortable appearing afebrile and not tachycardic 67-year-old male who is approximately 3 years status post right hip replacement now with recurrent pain status post mechanical fall concerning for periprosthetic fracture. Patient undressed and has no signs of acute trauma. No fevers nor significant pain with passive range of motion to suggest septic joint. No pain out of proportion to suggest necrotizing soft tissue infection. Soft nontender abdomen with no nausea nor vomiting so my suspicion is low for intra-abdominal process. No right lower quadrant tenderness to suggest diverticulitis. Given no fevers I am not concerned for myositis. Based on trauma I am not concerned for transient synovitis. No cervical thoracic nor lumbar spinal tenderness to suggest benefit from CT scanning. No thoracoabdominal trauma so will defer martinez scan. Will obtain chest x-ray given fall. No head strike no loss of consciousness so will defer CT head. Patient had a reassuring right hand exam. Given no significant tenderness will defer plain films at this point. No preceding chest pain dizziness noted and nausea so will defer syncope workup. Given no syncope will defer ECG. Not short of breath to suggest PE no hypoxia nor tachycardia so will defer dimer. Right foot warm well-perfused so not concern for critical limb ischemia and do not feel that the patient requires a CT angiogram. 7:45 PM No acute abnormality on right hip radiograph. Clear chest x-ray. Given pain we will proceed to try pelvis CT. 9:24 PM I spoke with Dr. Wan from orthopedics. He was going to review the scan but in the absence of any obvious periprosthetic fracture he advised that the patient could be touchdown weightbearing. He reported that it certainly could be possible that the patient could have a bone contusion or bursitis but he advised testing and over the next couple days to determine whether or not there was worsening pain which could indicate a failure. CBC shows leukocytosis but no anemia. No thrombocytopenia. Mildly elevated BUN similar to prior. No IGGY. Mild hyperglycemia but no anion gap and normal bicarbonate??not consistent with DKA. Normal reassuring calcium. 10 PM I spoke again with Dr. Wan from orthopedics. He reported that certainly could be possible that the patient had a very subtle pelvic fracture for which he could be discharged home with protective weightbearing. Patient reported that he had both a walker and a cane. After reviewing patient's PDMP record which had no reports of discharged home with several oxycodone tablets directions for acetaminophen and strict return precautions including any worsening pain any difficulty eating as result of nausea or vomiting or any other concerns. He understood his return indications and we will follow-up with Dr. Wan in clinic later this week. Chronic conditions affecting the care of the patient: Bradycardia hearing loss History obtained from an outside historian: Patient's External record review: No [facility] [place] [Diagnostic interpretations performed by me: Per my independent interpretation chest x-ray shows: No acute cardiopulmonary process ]Medications: Morphine acetaminophen Social determinants of health affecting disposition: N/A Management discussed with: Dr. Wan Treatment/interventions considered: Hospitalization but deferred Response to therapies provided: Improved pain following acetaminophen and morphine HPI This is a [id number] 67-year-old male with remote right hip repair approximately 3 years ago arrived to the emergency department via private vehicle in the setting of right hip pain. Patient reports that he slipped on his porch this morning landing on his right hip. He reports immediate pain. He was unable to get up right away secondary to the pain. He denies any preceding fevers chest pain cough shortness of breath. No head strike nor loss of consciousness. Patient denies routine tobacco and illicits. He rarely drinks ethanol. He also hit his right hand. He has been moving his hand well since his fall. Has been bearing weight on his bilateral lower extremities but with pain. He has not noticed any lacerations or any ecchymoses. He woke in his usual state of health earlier today. Exam General: Uncomfortable-appearing in no acute distress speaking in complete sentences. Head: Normocephalic, atraumatic. Eye: Regular rate and rhythm extraocular eye movements intact. No conjunctival injection. No scleral icterus. Ear, nose, mouth, throat: Grossly normal inspection. Normal voice, handling secretions normally. Neck: Trachea midline. No midline cervical spinal tenderness. Patient undressed and has no signs of any Cardiovascular: Well-perfused distal extremities. Bradycardic Respiratory: Nonlabored respiration. Clear lungs bilaterally Gastrointestinal: Nondistended abdomen. Soft nontender. Back: No midline thoracic nor lumbar spinal tenderness. No step-offs. No deformities. Musculoskeletal: Right lower extremity with no obvious deformities contusions nor lacerations. Right foot warm and well-perfused with 2+ PT and DP pulses. Patient does have pain with passive flexion at the hip. Hip does not appear internally rotated. Limited range of motion testing secondarily to pain. Pain is primarily in the anterior surface of the hip. No significant pain in groin. After rolling the patient no significant ecchymosis to the posterior aspect of the hip. No lacerations. Right hand: Right hand warm well-perfused no obvious trauma. 2+ right radial pulse. Sensation motor function intact in the right hand across the radial, median, and ulnar nerve distributions. Patient does have some mild tenderness overlying the MCP and PIP joints of the right middle finger. No significant bony tenderness. No limitation to range of motion. Skin: Normal for age and race, grossly normal temperature and turgor. No acute rash. Neurologic: Alert and appropriate, no apparent acute deficits. Psychiatric: Mood and manner are appropriate. Grooming and personal hygiene are appropriate. Related Data Home Medications Medication Instructions Recorded Confirmed famotidine 20 mg tablet 20 mg PO DAILY 12/16/19 02/25/23 acetaminophen 500 mg tablet 500 mg PO Q6H PRN #90 tabs 12/20/19 02/25/23 (Tylenol Extra Strength) atorvastatin 40 mg tablet 40 mg PO HS #90 tabs 10/29/21 02/25/23 mupirocin 2 % topical ointment 1 applic topical TID #15 grams 11/19/21 02/25/23 aspirin 81 mg tablet,delayed 81 mg PO ONCE 12/19/21 02/25/23 release levothyroxine 25 mcg capsule 25 mcg PO DAILY 02/25/22 02/25/23 amlodipine 5 mg tablet See Rx Instructions .Route 10/24/22 02/25/23 .COMPLEX #90 tabs metoprolol succinate 25 mg 25 mg PO HS #90 tabs 11/24/22 02/25/23 tablet,extended release 24 hr Previous Rx's Medication Instructions Recorded acetaminophen 500 mg tablet 500 mg PO Q6H PRN #90 tabs 12/20/19 (Tylenol Extra Strength) atorvastatin 40 mg tablet 40 mg PO HS #90 tabs 10/29/21 mupirocin 2 % topical ointment 1 applic topical TID #15 grams 11/19/21 amlodipine 5 mg tablet See Rx Instructions .Route 10/24/22 .COMPLEX #90 tabs metoprolol succinate 25 mg 25 mg PO HS #90 tabs 11/24/22 tablet,extended release 24 hr Allergies Allergy/AdvReac Type Severity Reaction Status Date / Time codeine AdvReac Intermediate Verified 03/31/23 17:40 Seasonal Allergy Uncoded 03/31/23 17:40 General Stated Complaint: Orthopedic MATTHEW: 4 PFSH All Active Problems (Updated 03/31/23 @ 21:57 by Chencho Lopez MD) History of falling (Acute) Acute pain of right hip (Acute) Asymmetrical sensorineural hearing loss (Acute) Hearing loss (Acute) Seborrheic keratoses (Acute) Seasonal allergies (Acute) Bradycardia (Acute) Elevated TSH (Acute) Subclinical hypothyroidism (Acute) Skin lesion of face (Acute) Hip pain, right (Acute) Preventative health care (Acute) Coronary artery disease (Chronic) Abnormal stress test (Acute) Medical History GERD (gastroesophageal reflux disease) HTN (hypertension) Surgical History History of right hip replacement 01/01 Status post total hip replacement, right (12/20/19) Social History Smoking/Tobacco Use Status: Former Tobacco Use Smoking risk assessment performed?: Yes Drug use: Never Substance use type: does not use Current gender identity: male Course Vital Signs Vital signs: Vital Signs Temperature 36.3 C L 03/31/23 17:36 Pulse 49 L 03/31/23 17:36 Respiratory Rate 16 03/31/23 17:36 Blood Pressure 182/97 H 03/31/23 17:36 Pulse Oximetry 98 03/31/23 17:36 Temperature 36.3 C L 03/31/23 17:36 Temperature Source Temporal Artery Scan 03/31/23 17:36 Pulse 49 L 03/31/23 17:36 Respiratory Rate 16 03/31/23 17:36 Respiratory Effort Normal, Non-Labored 03/31/23 17:41 Blood Pressure 182/97 H 03/31/23 17:36 Blood Pressure Position Sitting 03/31/23 17:36 Pulse Oximetry 98 03/31/23 17:36 Oxygen Delivery Method Room Air 03/31/23 17:36 Oxygen Flow Rate 0 03/31/23 17:36 Lab/Test Results Lab/Test Results: Laboratory Tests Range/Units 03/31/23 19:15 WBC (4.4-10.8) 10^3/uL 13.33 H RBC (4.36-5.78) 10^6/uL 4.68 Hgb (13.5-17.5) g/dL 15.4 Hct (40.0-50.0) % 43.5 MCV (80-95) fL 93 MCH (27.0-33.0) pg 32.9 MCHC (32.0-36.0) % 35.4 RDW (11.8-14.1) % 11.4 L Plt Count (130-400) 10^3/uL 246 MPV (8.0-11.0) fL 9.4 Immature Gran % 0.4 Neutrophils % 82.0 Lymphocytes % 11.3 Monocytes % 5.2 Eosinophils % 0.6 Basophils % 0.5 Nucleated RBC % (0.0-0.3) % 0.0 Absolute Neutrophils (1.2-6.7) 10^3/uL 10.93 H Absolute Lymphocytes (1.2-3.4) 10^3/uL 1.51 Absolute Monocytes (0.1-0.8) 10^3/uL 0.69 Absolute Eosinophils (0.0-0.7) 10^3/uL 0.08 Absolute Basophils (0.0-0.2) 10^3/uL 0.07 Sodium (136-145) mmol/L 138 Potassium (3.5-5.1) mmol/L 3.9 Chloride (98-107) mmol/L 103 Carbon Dioxide (21.0-32.0) mmol/L 24.9 Anion Gap (3-11) mmol/L 10.1 BUN (7-18) mg/dL 22 H Creatinine (0.70-1.30) mg/dL 1.1 Est GFR (CKD-EPI 2020) (mL/min/1.73m2) 73.12 Glucose (74-106) mg/dL 108 H Calcium (8.5-10.1) mg/dL 9.2
--- NOTE | 2023-03-31 21:04 | DI.VRAD_ITS ---
PROCEDURE INFORMATION: Exam: CT Pelvis Without Contrast; Skeletal Exam date and time: 03/31/2023 8:24 PM Age: 67 years old Clinical indication: Injury or trauma; Blunt trauma (contusions or hematomas); Injury date: 03/31/23; Injury details: Right hip pain; Prior surgery; Surgery date: 6+ months; Surgery type: R hip replacement; Patient HX: Fall, pain TECHNIQUE: Imaging protocol: Computed tomography of the pelvis without contrast. Exam focused on the skeleton. Radiation optimization: All CT scans at this facility use at least one of these dose optimization techniques: automated exposure control; mA and/or kV adjustment per patient size (includes targeted exams where dose is matched to clinical indication); or iterative reconstruction. COMPARISON: CR XR HIP RT COMPLETE AP PELVIS 03/31/2023 6:59 PM FINDINGS: Bones/joints: Right hip prosthesis noted. No evidence of hardware failure or loosening. Osseous alignment is normal. No acute fracture. Moderate degenerative changes in the lower lumbar spine and bilateral sacroiliac joints. Mild degenerative changes in the left hip. Soft tissues: Unremarkable. IMPRESSION: No acute fracture. Chronic appearing findings as noted. Dictated and Authenticated by: Teddy Brown MD. Ordering:KENDRA Paiz MD
[2023-03-31 22:01] VITALS: BP 164/55; TEMP 36.4; O2SAT 97
[2023-03-31] MEDS: oxyCODONE 5 MG TAB PO (22:10)
[2023-03-31] MEDS: Ibuprofen 400 MG TAB PO (22:10)
== END 2023-03-31 22:12 | disposition home or self-care (01) ==
PROVIDERS: Emergency Provider Emergency Medicine; PCP Nurse Practitioner Family
DX: M25.551 Pain in right hip (principal); I10 Essential (primary) hypertension; I25.10 Atherosclerotic heart disease of native coronary artery without angina pectoris; Z79.82 Long term (current) use of aspirin; Z96.641 Presence of right artificial hip joint
CPT/HCPCS: 36415; 80048; 99284; 71045; 72192; 73502; 85025; 99283; J0131; J2270

== ENCOUNTER 2024-01-21 17:56 | Outpatient (REF) | payer BC, SELFPAY ==
[2024-01-21 17:44] LABS: ALT 22 U/L (16-63); AST 26 U/L (15-37); Albumin 4.1 g/dL (3.4-5.0); Alkaline Phosphatase 66 U/L (46-116); Anion Gap 11.2 mmol/L (3-11); BUN 22 mg/dL (7-18); Bilirubin, Total 1.46 mg/dL (0.2-1.0); CO2 24.8 mmol/L (21.0-32.0); CREATININE 1.1 mg/dL (0.70-1.30); Calcium 9.2 mg/dL (8.5-10.1); Calculated LDL 108 mg/dL (<100); Chloride 104 mmol/L (98-107); Cholesterol 180 mg/dL (<200); Estimated GFR 72.67 (mL/min/1.73m2); Glucose 107 mg/dL (74-106); HDL Cholesterol 58 mg/dL (40-60); Potassium 4.2 mmol/L (3.5-5.1); Sodium 140 mmol/L (136-145); TSH 6.04 uIU/Ml (0.36-3.74); Triglyceride 70 mg/dL (<150)
[2024-01-21 18:09] LABS: Bilirubin, Direct 0.2 mg/dL (0.0-0.2)
== END 2024-01-21 17:57 | disposition home or self-care (01) ==
LOC: NCHCN 17:56
PROVIDERS: PCP Nurse Practitioner Family; Visit Provider Nurse Practitioner Family
DX: I25.10 Atherosclerotic heart disease of native coronary artery without angina pectoris (principal); E03.9 Hypothyroidism, unspecified; E80.7 Disorder of bilirubin metabolism, unspecified
CPT/HCPCS: 80053; 80061; 82248; 84443

== ENCOUNTER 2024-03-02 08:03 | Outpatient (REF) | payer BC, SELFPAY ==
[2024-03-02 15:50] LABS: TSH 6.08 uIU/mL (0.36-3.74)
== END 2024-03-02 08:04 | disposition home or self-care (01) ==
LOC: NCHCN 08:03
PROVIDERS: PCP Nurse Practitioner Family; Visit Provider Nurse Practitioner Family
DX: E03.9 Hypothyroidism, unspecified (principal)
CPT/HCPCS: 84443

== ENCOUNTER 2024-06-17 14:36 | Outpatient (REF) | payer BC, SELFPAY | END 2024-06-17 14:37 | disposition home or self-care (01) | LOC: NCHCN 14:36 | PROVIDERS: PCP Nurse Practitioner Family; Visit Provider Nurse Practitioner Family | DX: E03.9 Hypothyroidism, unspecified (principal) | CPT/HCPCS: 84443 ==

== ENCOUNTER 2024-08-25 16:02 | Outpatient (REF) | payer BC, SELFPAY ==
[2024-08-25 17:37] LABS: FREE T4 0.85 ng/dL (0.76-1.46); TSH 5.29 uIU/mL (0.36-3.74)
[2024-08-25 23:09] LABS: T3, Total 153 ng/dL (97-169)
== END 2024-08-25 16:03 | disposition home or self-care (01) ==
LOC: NCHCN 16:02
PROVIDERS: PCP Nurse Practitioner Family; Visit Provider Nurse Practitioner Family
DX: E03.9 Hypothyroidism, unspecified (principal)
CPT/HCPCS: 84439; 84443; 84480